=== PATIENT | female | born 1935 | race Two or more races ===

== ENCOUNTER 2018-10-11 10:52 | Emergency (ER) | payer MEDICARE, MEDICAID ==
[2018-10-11] MEDS ORDERED: NS 0.9% 1000 ML** 1,000 ML IV ONE ×2 (11:34→13:25)
--- NOTE | 2018-10-11 11:38 | ED ---
Adult Trauma - HPI Summary HPI Summary: Pt is an 83 y/o F presenting to the ED with a chief complaint of a fall. Per pt s daughter, she fell yesterday at home and was left on the floor for 16+ hours. The pts did not notice, and when the aide arrived this morning, she found her on the ground. When the daughter arrived to help try and move the pt, she complained of shoulder pain. She is unsure if the pt hit her head. - History of Current Complaint Chief Complaint: EDGeneral Stated Complaint: FELL Time Seen by Provider: 10/11/18 11:12 Hx Obtained From: Patient, Family/Business Intelligence Administrator Hx From Patient Unobtainable Due To: Other - pt does not speak icelandic Mechanism of Injury: Fall Loss of Consciousness: unsure Onset/Duration: Started Hours Ago, Still Present Onset of Pain: Immediate Onset Severity: Moderate Current Severity: Moderate Pain Intensity: 4 Pain Scale Used: 0-10 Numeric Location: Head, Extremities Character: Aching Aggravating Factor(s): Movement, Palpation Alleviating Factor(s): Rest Associated Signs & Symptoms: Positive: Ecchymosis - Allergy/Home Medications Allergies/Adverse Reactions: Allergies Allergy/AdvReac Type Severity Reaction Status Date / Time No Known Allergies Allergy Verified 06/16/15 08:04 Home Medications: Home Medications Cyanocobalamin TAB* [Vitamin B12 TAB*] 1,000 mcg PO DAILY 10/11/18 [History Confirmed 10/11/18] Donepezil TAB* [Aricept 5 MG TAB*] 10 mg PO DAILY 10/11/18 [History Confirmed ] Hydrochlorothiazide TAB* [Hydrodiuril TAB*] 12.5 mg PO DAILY 10/11/18 [History Confirmed 10/11/18] Vit A/Vit C/Vit E/Zinc/Copper [Preservision Areds Softgel] 1 cap PO DAILY [History Confirmed 10/11/18] PMH/Surg Hx/FS Hx/Imm Hx Previously Healthy: No Endocrine/Hematology History: Reports: Hx Thyroid Disease - TAKES LEVOTHYROXINE Cardiovascular History: Comment Only: Hx Hypertension - UNSURE- TAKES HYDROCHLOROTHIAZIDE Sensory History: Reports: Hx Contacts or Glasses - GLASSES Denies: Hx Hearing Aid Opthamlomology History: Reports: Hx Contacts or Glasses - GLASSES - Surgical History Surgery Procedure, Year, and Place: EYE [id number] EYE. AND TUBAL-1966. APPENDIX-1967. GALLBLADDER STONE [place]OVAL[place] [facility] [place] Anesthesia Reactions: No Infectious Disease History: Unable to Obtain/Confirm Infectious Disease History: Denies: Traveled Outside the [place] in Last 30 Days - Family History Known Family History: Negative: Renal Disease - Social History Alcohol Use: None Substance Use Type: Reports: None Smoking Status (MU): Never Smoked Tobacco Review of Systems Negative: Fever Positive: Myalgia, Decreased ROM Positive: Bruising, Other - abrasions All Other Systems Reviewed And Are Negative: Yes Physical Exam - Summary Physical Exam Summary: Appearance: The patient is well-nourished in no acute distress and in no acute pain. Skin: The skin is warm and dry and skin color reflects adequate perfusion HEENT: The head is normocephalic, there is ecchymosis and an abrasion on the L side of her forehead. The pupils are equal and reactive. The conjunctivae are clear and without drainage. Nares are patent and without drainage. Mouth reveals dry mucous membranes and the throat is without erythema and exudate. The external ears are intact. The ear canals are patent and without drainage. The tympanic membranes are intact. Neck: The neck is supple with full range of motion and non-tender. There are no carotid bruits. There is no neck vein distension. Respiratory: Chest is non-tender. Lungs are clear to auscultation and breath sounds are symmetrical and equal. Cardiovascular: Heart is regular rate and rhythm. There is no murmur or rub auscultated. There is no peripheral edema and pulses are symmetrical and equal. Abdomen: The abdomen is soft and non-tender. There are normal bowel sounds heard in all four quadrants and there is no organomegaly palpated. Musculoskeletal: There is no back tenderness noted. R upper arm mildly tender to ROM and palpation. There is good capillary refill. There is no peripheral edema or calf tenderness elicited. Neurological: Patient is alert and oriented to person, place and time. The patient has symmetrical motor strength in all four extremities. Cranial nerves are grossly intact. Deep tendon reflexes are symmetrical and equal in all four extremities. Psychiatric: The patient has an appropriate affect and does not exhibit any anxiety or depression. GCS: 15 Triage Information Reviewed: Yes Vital Signs On Initial Exam: Initial Vitals Temp Pulse Resp BP Pulse Ox 97.5 F 63 14 163/101 100 10/11/18 11:08 10/11/18 11:08 10/11/18 11:08 10/11/18 11:08 10/11/18 11:08 Vital Signs Reviewed: Yes Diagnostics - Vital Signs Vital Signs Temp Pulse Resp BP Pulse Ox 10/11/18 11:08 97.5 F 63 14 163/101 100 - Laboratory Result Diagrams: 10/11/18 13:05 10/11/18 13:05 Lab Statement: Any lab studies that have been ordered have been reviewed, and results considered in the medical decision making process. - Radiology Humerus X-ray Radiology Interpretation Completed By: Radiologist Summary of Radiographic Findings: Negative for fracture. ED physician has reviewed this report. - CT Brain CT CT Interpretation Completed By: Radiologist Summary of CT Findings: No acute intracranial pathology. ED physician has reviewed this report. - EKG 1147 Cardiac Rate: Bradycardia - 51bpm EKG Rhythm: Sinus Bradycardia ST Segment: Normal Ectopy: None EKG Comparison: No Significant Change - from 06/09/15 Summary of EKG Findings: Left axis deviation Adult Trauma Course/Dx - Course Course Of Treatment: Ms. Mccracken apparently fell for unknown reason last night in her bedroom. She has dementia and can't really give us a history. Her is 89 and is starting to have some memory problems also. He apparently did not call for help and was unable to get her up on his own. Visiting nurse service found her this morning and an ambulance was dispatched. She is noted to have a bump on her head and some mild complaint of right upper arm pain. Initially at the scene and she was complaining of her right knee but she was able to ambulate on it and now says that it feels better. She speaks only [place]ican but her daughter is here translating for her. CT scan is obtained of the brain and is negative as is x-ray of her humerus on the right. Labs are generally unremarkable aside from an indeterminate troponin of 0.04. This was repeated after a couple hours and was stable. Her CPK was elevated at 800 and she was given IV fluids. I spoke with the daughter about admission versus going home and the daughter is certain that patient would prefer to be at home. They've feel that they can get her visiting nurse service increased because they no longer trust her given his condition. - Diagnoses Provider Diagnoses: Fall, Head injury Discharge - Sign-Out/Discharge Documenting (check all that apply): Patient Departure - Discharge Patient Received Moderate/Deep Sedation with Procedure: No - Discharge Plan Condition: Stable Disposition: HOME Patient Education Materials: Head Injury (ED) Referrals: Tiburcio Colon MD [Primary Care Provider] - 3 Days Additional Instructions: Keep your appointment with your primary care provider on Sunday. Return to the ED with any new or worsening symptoms. - Billing Disposition and Condition Condition: STABLE Disposition: Home - Attestation Statements Document Initiated by Scribe: Yes Documenting Scribe: Lisseth Chan Provider For Whom Preet is Documenting (Include Credential): Shon Mancuso MD. Scribe Attestation: Lisseth Galaviz scribed for Shon Mancuso MD. on 10/11/18 at 2222. Scribe Documentation Reviewed: Yes Provider Attestation: The documentation as recorded by the trevonibLisseth ang accurately reflects the service I personally performed and the decisions made by Shon mccormack MD. Status of Scribe Document: Viewed
[2018-10-11 13:11] LABS: Urine Appearance Cloudy; Urine Bacteria Absent (Absent); Urine Bilirubin Negative (Negative); Urine Blood Negative (Negative); Urine Color Yellow; Urine Glucose Negative (Negative); Urine Ketones Trace (Negative); Urine Nitrite Negative (Negative); Urine Protein Negative (Negative); Urine Red Blood Cell Absent (Absent); Urine Specific Gravity 1.019 (1.010-1.030); Urine Squamous Epithelial Cell Present (Absent); Urine Urobilinogen Negative (Negative); Urine White Blood Cell 1+(6-10/hpf) (Absent)
[2018-10-11 13:12] LABS: ABS Basophils 0 10^3/ul (0-0.2); ABS Eosinophils 0 10^3/ul (0-0.6); ABS Lymphocytes 1.1 10^3/ul (1.0-4.8); ABS Monocytes 0.5 10^3/ul (0-0.8); ABS Neutrophils 5.3 10^3/ul (1.5-7.7); ABS Nucleated RBC 0 10^3/ul; Eosinophil % 0.3 %; Hematocrit 40 % (35-47); Hemoglobin 13.5 g/dl (12.0-16.0); Mean Corpuscular HGB Conc 34 g/dl (31-36); Mean Corpuscular Hemoglobin 32 pg (27-31); Mean Corpuscular Volume 94 fL (80-97); Mean Platelet Volume 7.9 fL (7.4-10.4); Nucleated Red Blood Cells % 0; Platelet Count 181 10^3/ul (150-450); Red Blood Count 4.28 10^6/ul (4.00-5.40); Red Cell Distribution Width 14 % (10.5-15); White Blood Count 6.9 10^3/ul (3.5-10.8)
[2018-10-11 13:34] LABS: Albumin 3.6 g/dL (3.2-5.2); Albumin/Globulin Ratio 1.3 (1-3); BUN/Creatinine Ratio 29.9 (8-20); Calcium 9.6 mg/dL (8.6-10.3); EGFR African American 75.4 (>60); EGFR Non-African American 62.3 (>60); Globulin 2.7 g/dL (2-4); Magnesium 1.9 mg/dL (1.9-2.7); Potassium 3.8 mmol/L (3.5-5.0); Total Bilirubin 0.8 mg/dL (0.2-1.0); Total Protein 6.3 g/dL (6.4-8.9)
[2018-10-11 14:01] LABS: TSH (Thyroid Stimulating Horm) 8.52 mcIU/mL (0.34-5.60)
[2018-10-11 14:26] LABS: Troponin I 0.04 ng/mL (<0.04)
[2018-10-11 16:04] LABS: Troponin I 0.04 ng/mL (<0.04)
[2018-10-11 16:30] VITALS: BP 172/67
== END 2018-10-11 16:29 | disposition home or self-care (01) ==
LOC: ED 10:52
DX: S09.90XA Unspecified injury of head, initial encounter (principal); M25.511 Pain in right shoulder; F03.90 Unspecified dementia, unspecified severity, without behavioral disturbance, psychotic disturbance, mood disturbance, and anxiety; E07.9 Disorder of thyroid, unspecified; I10 Essential (primary) hypertension; R00.1 Bradycardia, unspecified; W19.XXXA Unspecified fall, initial encounter; Y92.003 Bedroom of unspecified non-institutional (private) residence as the place of occurrence of the external cause
CPT/HCPCS: 36415; 70450; 80053; 81003; 81015; 82550; 83605; 83735; 84443; 84484; 85025; 85610; 87086; 93005; 96360; 96361; 99283

== ENCOUNTER 2019-10-03 12:02 | Emergency (ER) | payer MEDICARE, MEDICAID ==
[2019-10-03] MEDS ORDERED: NS 0.9% 1000 ML** 1,000 ML IV ONE (12:20)
--- NOTE | 2019-10-03 12:30 | ED ---
HPI Febrile Illness - HPI Summary HPI Summary: Patient is an 84 y/o F presenting to [facility] via EMS with complaints of fever. Patient does not speak Bur[place]ian, daughter translates for the patient. It is reported that the patient has been experiencing fever intermittently for the past month. Hx of UTIs reported. Patient has been on Augmentin and Penicillin. She recently finished Penicillin and is not on any antibiotics currently. Patient has also been given Tylenol and ibuprofen for her fever. No fever currently noted. EMS reports VSS, BP of 149/83, sinus rhythm with rate of 60s, respiration rate of 14-16, BG 100, o2 saturation between 95-98% on RA. CP, KEARNS, abdominal pain, vomiting, cough, rashes are all denied. No Hx of diabetes noted but patient has Hx of anxiety and thyroid disease. Patient is on synthroid 100 mcg. Home medications and allergies are reviewed. - History of Current Complaint Hx Obtained From: Patient - daughter translates Onset/Duration: Started Weeks Ago Timing: Intermittent Pain Scale Used: 0-10 Numeric Associated Signs and Symptoms: Negative - Allergy/Home Medications Allergies/Adverse Reactions: Allergies Allergy/AdvReac Type Severity Reaction Status Date / Time No Known Allergies Allergy Verified 10/03/19 12:27 Home Medications: Home Medications Amoxicillin/Clavulanate TAB* [Augmentin TAB 875*] 875 mg PO BID 10/03/19 [ History Confirmed 10/03/19] Docusate CAP* [Colace Cap*] 100 mg PO DAILY 10/03/19 [History Confirmed 10/03/19 ] Fluticasone NASAL SPRAY 50MCG* [Flonase NASAL SPRAY 50MCG*] 2 spray BOTH NARES DAILY 10/03/19 [History Confirmed 10/03/19] LORazepam TAB(*) [Ativan 0.5 MG TAB (*)] 0.5 - 1 mg PO Q4H PRN 10/03/19 [ History Confirmed 10/03/19] Mometasone NASAL (NF) [Nasonex (NF)] 2 spray BOTH NARES DAILY 10/03/19 [History Confirmed 10/03/19] PMH/Surg Hx/FS Hx/Imm Hx Endocrine/Hematology History: Reports: Hx Thyroid Disease - TAKES LEVOTHYROXINE Denies: Hx Diabetes Cardiovascular History: Comment Only: Hx Hypertension - UNSURE- TAKES HYDROCHLOROTHIAZIDE Sensory History: Reports: Hx Contacts or Glasses - GLASSES Denies: Hx Hearing Aid Opthamlomology History: Reports: Hx Contacts or Glasses - GLASSES - Surgical History Surgery Procedure, Year, and Place: EYE [id number] EYE. AND TUBAL-1966. APPENDIX-1967. GALLBLADDER STONE REMOVAL- [facility] – [place] Hx Anesthesia Reactions: No - Family History Known Family History: Negative: Renal Disease - Social History Alcohol Use: None Substance Use Type: Reports: None Smoking Status (MU): Never Smoked Tobacco Review of Systems Positive: Fever Negative: Chest Pain Negative: Cough Negative: Abdominal Pain, Vomiting Negative: Rash Negative: Headache All Other Systems Reviewed And Are Negative: Yes Physical Exam - Summary Physical Exam Summary: Constitutional: Well-developed, Well-nourished, Alert. (-) Distressed Skin: Warm, Dry HENT: Normocephalic; Atraumatic Eyes: Conjunctiva normal Neck: Musculoskeletal ROM normal neck. (-) JVD, (-) Stridor, (-) Tracheal deviation Cardio: Rhythm regular, rate normal, Heart sounds normal; Intact distal pulses; The pedal pulses are 2+ and symmetric. Radial pulses are 2+ and symmetric. (-) Murmur Pulmonary/Chest wall: Effort normal. (-) Respiratory distress, (-) Wheezes, (-) Rales Abd: Soft, (-) tenderness, (-) Distension, (-) Guarding, (-) Rebound Musculoskeletal: (-) Edema Lymph: (-) Cervical adenopathy Neuro: Alert, Oriented x3 Psych: Mood and affect Normal Triage Information Reviewed: Yes Vital Signs Reviewed: Yes Procedures - Sedation Patient Received Moderate/Deep Sedation with Procedure: No Diagnostics - Laboratory Result Diagrams: 10/03/19 12:43 10/03/19 12:43 Lab Statement: Any lab studies that have been ordered have been reviewed, and results considered in the medical decision making process. - Radiology CXR Radiology Interpretation Completed By: Radiologist Summary of Radiographic Findings: IMPRESSION: THERE IS A MASS IN THE RIGHT PARATRACHEAL REGION. RECOMMEND A CT OF THE CHEST. WITH CONTRAST FOR FURTHER EVALUATION. THIS REPORT WAS REVIEWED BY ED PHYSICIAN. - CT CHEST CT CT Interpretation Completed By: Radiologist Summary of CT Findings: IMPRESSION: #. Negative for pneumonia. #. Tortuous course of the RIGHT brachiocephalic, subclavian, and common carotid arteries. ( without aneurysm) as well as the RIGHT internal jugular vein accounts for the RIGHT. paratracheal density on chest radiograph without concern. THIS REPORT WAS REVIEWED BY ED PHYSICIAN. - EKG 1444 Cardiac Rate: NL - rate of 67 BPM EKG Rhythm: Sinus Rhythm Summary of EKG Findings: EKG showed NSR with rate of 67 BPM, no ischemic changes. ED physician has reviewed and interpreted this EKG. Course/Dx - Course Course Of Treatment: Patient is an 84 y/o F presenting to [facility] via EMS with complaints of fever. Patient does not speak Bur[place]ian, daughter translates for the patient. It is reported that the patient has been experiencing fever intermittently for the past month. Hx of UTIs reported. Patient has been on Augmentin and Penicillin. She recently finished Penicillin and is not on any antibiotics currently. Patient has also been given Tylenol and ibuprofen for her fever. No fever currently noted. EMS reports VSS, BP of 149/83, sinus rhythm with rate of 60s, respiration rate of 14-16, BG 100, o2 saturation between 95-98% on RA. CP, KEARNS, abdominal pain, vomiting, cough, rashes are all denied. No Hx of diabetes noted but patient has Hx of anxiety and thyroid disease. Patient is on synthroid 100 mcg. Physical exam is unconcerning. Influenza A and B were negative. Bloodwork was obtained, abnormal values include RBC 3.65, Hgb 11.9, MCH 33, BUN/creatinine ratio 26.7, total protein 5.9 , TSH 7.97. UA was positive for ascorbic acid, otherwise no abnormal findings. During ED course, patient received fluids. EKG showed NSR with rate of 67 BPM, no ischemic changes. CXR IMPRESSION: THERE IS A MASS IN THE RIGHT PARATRACHEAL REGION. RECOMMEND A CT OF THE CHEST. WITH CONTRAST FOR FURTHER EVALUATION. CT CHEST IMPRESSION: #. Negative for pneumonia. #. Tortuous course of the RIGHT brachiocephalic, subclavian, and common carotid arteries. ( without aneurysm) as well as the RIGHT internal jugular vein accounts for the RIGHT. paratracheal density on chest radiograph without concern. Patient was discharged to home and will follow up with PCP. Patient appears well, nontoxic. Afebrile in the ED. No clear source for infection. No evidence of UTI or pneumonia. No signs of cellulitis. Daughter comfortable with patient being discharged home. Encouraged to follow up with PCP for further evaluation. - Diagnoses Provider Diagnoses: Fever Discharge ED - Sign-Out/Discharge Documenting (check all that apply): Patient Departure - discharge - Discharge Plan Condition: Stable Disposition: HOME Patient Education Materials: Fever in Adults (ED) Referrals: Tiburcio Colon MD [Primary Care Provider] - 3 Days Additional Instructions: PLEASE RETURN TO ED FOR ANY NEW OR CONCERNING SYMPTOMS. PLEASE FOLLOW UP WITH YOUR PRIMARY CARE PHYSICIAN WITHIN THREE DAYS. - Billing Disposition and Condition Condition: STABLE Disposition: Home - Attestation Statements Document Initiated by Preet: Yes Documenting Scribe: VAISHNAVI NEWMAN Provider For Whom Preet is Documenting (Include Credential): SUSY QIU DO Scribe Attestation: VAISHNAVI Galaviz scribed for SUSY QIU DO on 10/03/19 at 1621. Scribe Documentation Reviewed: Yes Provider Attestation: The documentation as recorded by the VAISHNAVI coelho accurately reflects the service I personally performed and the decisions made by , SUSY QIU DO Status of Scribsav Document: Viewed
[2019-10-03 12:56] LABS: ABS Eosinophils 0.1 10^3/ul (0-0.6); ABS Lymphocytes 1.3 10^3/ul (1.0-4.8); ABS Monocytes 0.5 10^3/ul (0-0.8); ABS Neutrophils 2.9 10^3/ul (1.5-7.7); Eosinophil % 1.5 %; Hematocrit 35 % (35-47); Hemoglobin 11.9 g/dL (12.0-16.0); Mean Corpuscular HGB Conc 34 g/dL (31-36); Mean Corpuscular Hemoglobin 33 pg (27-31); Mean Corpuscular Volume 96 fL (80-97); Mean Platelet Volume 7.8 fL (7.4-10.4); Platelet Count 186 10^3/uL (150-450); Red Blood Count 3.65 10^6 /uL (3.70-4.87); Red Cell Distribution Width 14 % (10-15); White Blood Count 4.8 10^3/uL (3.5-10.8)
[2019-10-03 12:58] LABS: Influenza A Molecular Negative (Negative); Influenza B Molecular Negative (Negative)
[2019-10-03 13:11] LABS: Albumin 3.4 g/dL (3.2-5.2); Calcium 8.7 mg/dL (8.6-10.3); Magnesium 1.9 mg/dL (1.9-2.7); Potassium 3.8 mmol/L (3.5-5.0); Total Bilirubin 0.4 mg/dL (0.2-1.0)
[2019-10-03 13:12] LABS: Troponin I 0.02 ng/mL (<0.03)
[2019-10-03 13:17] LABS: Albumin/Globulin Ratio 1.4 (1-3); BUN/Creatinine Ratio 26.7 (8-20); EGFR African American 76.3 (>60); Globulin 2.5 g/dL (2-4); Total Protein 5.9 g/dL (6.4-8.9)
[2019-10-03 13:20] LABS: Urine Appearance Clear; Urine Bilirubin Negative (Negative); Urine Blood Negative (Negative); Urine Color Yellow; Urine Glucose Negative (Negative); Urine Ketones Negative (Negative); Urine Nitrite Negative (Negative); Urine Protein Negative (Negative); Urine Specific Gravity 1.015 (1.010-1.030); Urine Urobilinogen Negative (Negative)
[2019-10-03] MEDS ORDERED: Iohexol 300* (CONTRAST) 10 ML SDV IV ONE (13:52)
[2019-10-03 14:06] LABS: TSH (Thyroid Stimulating Horm) 7.97 mcIU/mL (0.34-5.60)
[2019-10-03 15:59] VITALS: BP 191/69
[2019-10-03 16:02] LABS: T4, Total 6.84 mcg/dL (6.09-12.23)
[2019-10-03 16:08] LABS: Free T3 2.3 pg/mL (2.5-3.9)
[2019-10-03 16:11] LABS: Free T4 0.96 ng/dL (0.61-1.12)
== END 2019-10-03 15:57 | disposition home or self-care (01) ==
LOC: ED 12:02
DX: R50.9 Fever, unspecified (principal); I44.4 Left anterior fascicular block; K76.0 Fatty (change of) liver, not elsewhere classified; N28.1 Cyst of kidney, acquired; R22.2 Localized swelling, mass and lump, trunk; E07.9 Disorder of thyroid, unspecified; Z87.440 Personal history of urinary (tract) infections; Z90.49 Acquired absence of other specified parts of digestive tract
CPT/HCPCS: 36415; 71046; 71260; 80053; 81003; 83735; 84436; 84439; 84443; 84481; 84484; 85025; 93005; 96360; 99283; Q9967